=== PATIENT | male | born 1985 | race Caucasian/White ===

== ENCOUNTER 2024-01-31 13:04 | Emergency (ER) | payer OTHER ==
[2024-01-31 13:10] VITALS: TEMP 98.9
[2024-01-31] MEDS ORDERED: [UNRECOGNIZED DRUG - OTHER] SL STA (14:45)
--- NOTE | 2024-01-31 15:01 | ED ---
Nausea/Vomiting/Diarrhea HPI - General Chief complaint: Nausea/Vomiting/Diarrhea Stated complaint: Withdrawal Time Seen by Provider: 01/31/24 14:20 Source: patient, RN notes reviewed Mode of arrival: ambulatory Limitations: no limitations - History of Present Illness Initial comments: 38-year-old male presenting with opiate withdrawal. States he has been taking Suboxone however has been unable to obtain a refill due to insurance issues. States he ran out of the Suboxone 8 days ago. He took a Suboxone from a friend 4 days ago. Since then, he has been having stomach cramps, diarrhea, and body aches. Patient states he does not want to use. He has upcoming appointment with PCP in 3 days. - Related Data Previous Rx's Medication Instructions Recorded Buprenorphine-Nalox 8-2 mg Tab 1 tab SUBLINGUAL DAILY 3 Days #3 01/31/24 [Suboxone 8-2 mg Tab] tab Allergies Allergy/AdvReac Type Severity Reaction Status Date / Time antihemophilic factor, human Allergy Mild Anaphylaxis Verified 01/31/24 13:10 [From Humate-P] von Willebrand factor, human Allergy Mild Anaphylaxis Verified 01/31/24 13:10 [From Humate-P] Review of Systems ROS Statement: Those systems with pertinent positive or pertinent negative responses have been documented in the HPI. ROS Other: All systems not noted in ROS Statement are negative. Past Medical History Additional Past Medical History / Comment(s): opiate addiction, von willkaren History of Any Multi-Drug Resistant Organisms: None Reported Additional Past Surgical History / Comment(s): jaw surgery, right forearm repair, kidney surgery Past Psychological History: No Psychological Hx Reported Smoking Status: Current every day smoker Past Alcohol Use History: None Reported Past Drug Use History: Opiates General Exam Limitations: no limitations General appearance: alert, in no apparent distress Head exam: Present: atraumatic, normocephalic, normal inspection Eye exam: Present: normal appearance, PERRL, EOMI. Absent: scleral icterus, conjunctival injection, periorbital swelling ENT exam: Present: normal exam, mucous membranes moist Neck exam: Present: normal inspection. Absent: tenderness, meningismus, lymphadenopathy Respiratory exam: Present: normal lung sounds bilaterally. Absent: respiratory distress, wheezes, rales, rhonchi, stridor Cardiovascular Exam: Present: regular rate, normal rhythm, normal heart sounds. Absent: systolic murmur, diastolic murmur, rubs, gallop, clicks GI/Abdominal exam: Present: soft, normal bowel sounds. Absent: distended, tenderness, guarding, rebound, rigid Neurological exam: Present: alert, oriented X3 Psychiatric exam: Present: normal affect, normal mood Course Vital Signs 01/31/24 13:04 Temperature 98.9 F Pulse Rate 103 H Respiratory 16 Rate Blood Pressure 153/102 O2 Sat by Pulse 98 Oximetry Medical Decision Making - Medical Decision Making Was pt. sent in by a medical professional or institution (, PA, BUZZLE BUFFER, urgent care, hospital, or care home...) When possible be specific @ -No Did you speak to anyone other than the patient for history (EMS, parent, family, police, friend...)? What history was obtained from this source @ -No Did you review nursing and triage notes (agree or disagree)? Why? @ -I reviewed and agree with nursing and triage notes Were old charts reviewed (outside hosp., previous admission, EMS record, old EKG, old radiological studies, urgent care reports/EKG's, care home records)? Report findings @ -No old charts were reviewed Differential Diagnosis (chest pain, altered mental status, abdominal pain women, abdominal pain men, vaginal bleeding, weakness, fever, dyspnea, syncope, headache, dizziness, GI bleed, back pain, seizure, CVA, palpatations, mental health, musculoskeletal)? @ -Differential opiate withdrawal, appendicitis, cholecystitis, diverticulosis, ischemic bowel, pancreatitis, hepatitis, UTI, gastroenteritis, AAA, incarcerated hernia, bowel obstruction, constipation, inflammatory bowel, hepatitis, peptic ulcer disease, splenic infarction, perforated viscus, testicular torsion, this is not meant to be an all-inclusive list EKG interpreted by me (3pts min.). @ -None X-rays interpreted by me (1pt min.). @ -None done CT interpreted by me (1pt min.). @ -None done U/S interpreted by me (1pt. min.). @ -None done What testing was considered but not performed or refused? (CT, X-rays, U/S, labs)? Why? @ -Imaging not indicated as no red flag symptoms What meds were considered but not given or refused? Why? @ -None Did you discuss the management of the patient with other professionals (professionals i.e. , PA, BUZZLE BUFFER, lab, RT, psych nurse, high school social studies teacher, meal cooker, teacher, police patrol officer, business case analyst)? Give summary @ -No Was smoking cessation discussed for >3mins.? @ -No Was critical care preformed (if so, how long)? @ -No Were there social determinants of health that impacted care today? How? (Homelessness, low income, unemployed, alcoholism, drug addiction, transportation, low edu. Level, literacy, decrease access to med. care, skilled nursing, rehab)? @ -No Was there de-escalation of care discussed even if they declined (Discuss DNR or withdrawal of care, Hospice)? DNR status @ -No What co-morbidities impacted this encounter? (DM, HTN, Smoking, COPD, CAD, Cancer, CVA, ARF, Chemo, Hep., AIDS, mental health diagnosis, sleep apnea, morbid obesity)? @ -Opiate use disorder Was patient admitted / discharged? Hospital course, mention meds given and route, prescriptions, significant lab abnormalities, going to OR and other pertinent info. @ -Patient was discharged. Patient was seen and evaluated for opiate withdrawal. Patient was previously taking Suboxone however could not refill his medication due to insurance issues. Patient is experiencing diarrhea and abdominal cramping. Patient is mildly tachycardic. No acute distress, no abdominal tenderness. Patient was given IV fluids, Bentyl, Tylenol, and dose of Suboxone. Dose confirmed with patient. Lab work including CBC and CMP unremarkable. Upon reevaluation, patient states symptoms have improved and feels stable for discharge. Patient has upcoming appointment with primary care in 3 days. Return symptoms discussed. Given Suboxone for 3 days, however discussed importance of following up regularly with primary care physician. Patient is very grateful and agrees. Patient discharged in stable condition. Undiagnosed new problem with uncertain prognosis? @ -No Drug Therapy requiring intensive monitoring for toxicity (Heparin, Nitro, Insulin, Cardizem)? @ -No Were any procedures done? @ -No Diagnosis/symptom? @ -Opiate withdrawal Acute, or Chronic, or Acute on Chronic? @ -Acute Uncomplicated (without systemic symptoms) or Complicated (systemic symptoms)? @ -Uncomplicated Side effects of treatment? @ -No Exacerbation, Progression, or Severe Exacerbation? @ -No Poses a threat to life or bodily function? How? (Chest pain, [place], [place], pneumonia, PE, COPD, DKA, ARF, appy, cholecystitis, CVA, Diverticulitis, Homicidal, Suicidal, threat to staff... and all critical care pts) @ -Not at this time - Lab Data Result diagrams: 01/31/24 15:09 01/31/24 15:09 Lab Results 01/31/24 01/31/24 01/31/24 Range/Units 15:09 15:09 15:09 WBC 10.5 (3.8-10.6) k/uL RBC 4.70 (4.30-5.90) m/uL Hgb 15.0 (13.0-17.5) gm/dL Hct 45.1 (39.0-53.0) % MCV 95.9 (80.0-100.0) fL MCH 31.8 (25.0-35.0) pg MCHC 33.2 (31.0-37.0) g/dL RDW 13.8 (11.5-15.5) % Plt Count 270 (150-450) k/uL MPV 7.4 Neutrophils % 74 % Lymphocytes % 20 % Monocytes % 5 % Eosinophils % 0 % Basophils % 0 % Neutrophils # 7.7 (1.3-7.7) k/uL Lymphocytes # 2.1 (1.0-4.8) k/uL Monocytes # 0.5 (0-1.0) k/uL Eosinophils # 0.0 (0-0.7) k/uL Basophils # 0.0 (0-0.2) k/uL Sodium 141 (137-145) mmol/L Potassium 4.4 (3.5-5.1) mmol/L Chloride 108 H (98-107) mmol/L Carbon Dioxide 24 (22-30) mmol/L Anion Gap 9 mmol/L BUN 17 (9-20) mg/dL Creatinine 0.77 (0.66-1.25) mg/dL Est GFR (CKD-EPI)AfAm >90 (>60 ml/min/1.73 sqM) Est GFR (CKD-EPI)NonAf >90 (>60 ml/min/1.73 sqM) Glucose 111 H (74-99) mg/dL Calcium 9.1 (8.4-10.2) mg/dL Total Bilirubin 0.9 (0.2-1.3) mg/dL AST 86 H (17-59) U/L ALT 108 H (4-49) U/L Alkaline Phosphatase 58 (38-126) U/L Total Protein 7.1 (6.3-8.2) g/dL Albumin 4.5 (3.5-5.0) g/dL Urine Opiates Screen Not Detected (NotDetected) Ur Oxycodone Screen Not Detected (NotDetected) Urine Methadone Screen Not Detected (NotDetected) Ur Barbiturates Screen Not Detected (NotDetected) U Tricyclic Antidepress Not Detected (NotDetected) Ur Phencyclidine Scrn Not Detected (NotDetected) Ur Amphetamines Screen Not Detected (NotDetected) U Methamphetamines Scrn Not Detected (NotDetected) U Benzodiazepines Scrn Not Detected (NotDetected) Urine Cocaine Screen Not Detected (NotDetected) U Marijuana (THC) Screen Not Detected (NotDetected) Disposition Clinical Impression: Opiate withdrawal Disposition: HOME SELF-CARE Condition: Stable Instructions (If sedation given, give patient instructions): Opioid Withdrawal (ED) Additional Instructions: Follow-up for appointment on Thursday. Please return to the Emergency Department if symptoms worsen or any other concerns. Prescriptions: Buprenorphine-Nalox 8-2 mg Tab [Suboxone 8-2 mg Tab] 1 tab SUBLINGUAL DAILY 3 Days #3 tab Is patient prescribed a controlled substance at d/c from ED?: Yes When asked, does pt state using other controlled substances?: No If prescribed controlled substance>3 days was MAPS reviewed?: Prescribed <3 Days If opioid is for acute pain is fill amount 7 days or less?: Yes If Rx opioid, was Start Talking consent form obtained?: No Referrals: Nonstaff,Physician [Primary Care Provider] - 1-2 days Time of Disposition: 17:42
[2024-01-31] MEDS: SODIUM CHLORIDE 0.9% 1,000 ML IV STA (15:18)
[2024-01-31] MEDS: ACETAMINOPHEN TAB 325 MG TAB PO STA (15:18)
[2024-01-31] MEDS: DICYCLOMINE 20 MG TAB PO STA (15:18)
[2024-01-31 15:29] LABS: ALT 108 U/L (4-49); AST 86 U/L (17-59); African American GFR (CKD) >90 (>60 ml/min/1.73 sqM); Albumin 4.5 g/dL (3.5-5.0); Alkaline Phosphatase 58 U/L (38-126); Anion Gap 9 mmol/L; Blood Urea Nitrogen 17 mg/dL (9-20); Calcium 9.1 mg/dL (8.4-10.2); Carbon Dioxide 24 mmol/L (22-30); Chloride 108 mmol/L (98-107); Glucose 111 mg/dL (74-99); Non-African American GFR(CKD) >90 (>60 ml/min/1.73 sqM); Potassium 4.4 mmol/L (3.5-5.1); Sodium 141 mmol/L (137-145); Total Bilirubin 0.9 mg/dL (0.2-1.3); Total Protein 7.1 g/dL (6.3-8.2)
[2024-01-31] MEDS: BUPRENORPHINE-NALOX 8-2 MG TAB 1 EACH TAB.SUBL SL STA (15:31)
[2024-01-31 15:37] LABS: Basophils % (A) 0 %; Eosinophils % (A) 0 %; HCT 45.1 % (39.0-53.0); Lymphocytes # (A) 2.1 k/uL (1.0-4.8); Lymphocytes % (A) 20 %; MCH 31.8 pg (25.0-35.0); MCHC 33.2 g/dL (31.0-37.0); MCV 95.9 fL (80.0-100.0); Mean Platelet Volume 7.4; Monocytes # (A) 0.5 k/uL (0-1.0); Monocytes % (A) 5 %; Neutrophils # (A) 7.7 k/uL (1.3-7.7); Neutrophils % (A) 74 %; Platelet Count 270 k/uL (150-450); RDW 13.8 % (11.5-15.5); WBC 10.5 k/uL (3.8-10.6)
[2024-01-31 15:38] LABS: Amphetamine Screen,Urine Not Detected (NotDetected); Barbiturate Screen,Urine Not Detected (NotDetected); Benzodiazepines Screen,Urine Not Detected (NotDetected); Cocaine Screen,Urine Not Detected (NotDetected); Methadone Screen, Urine Not Detected (NotDetected); Opiate Screen,Urine Not Detected (NotDetected); Oxycodone Screen, Urine Not Detected (NotDetected); Phencyclidine Screen,Urine Not Detected (NotDetected); Tricyclic Antidepressant,Urine Not Detected (NotDetected); Urn Cannabinoid Scrn Not Detected (NotDetected)
[2024-01-31 18:16] VITALS: BP 138/79; PULSE 86; RESP 18
== END 2024-01-31 18:16 | disposition home or self-care (01) ==
LOC: EC 13:04
DX: F11.23 Opioid dependence with withdrawal (principal); F17.200 Nicotine dependence, unspecified, uncomplicated; Z88.8 Allergy status to other drugs, medicaments and biological substances
CPT/HCPCS: 36415; 80053; 80306; 85025; 96360; 99284

== ENCOUNTER 2024-04-08 16:18 | Emergency (ER) | payer OTHER ==
--- NOTE | 2024-04-08 17:01 | ED ---
ENT HPI - General Chief complaint: Dental/Oral Stated complaint: screw removal, liver issue Time Seen by Provider: 04/08/24 16:59 Source: patient, RN notes reviewed Mode of arrival: ambulatory Limitations: no limitations - History of Present Illness Initial comments: 38-year-old female with history of hepatitis C presenting to the ER for ultrasound of liver. He states he follows closely with Dr. Lyon and recently missed appointments for liver ultrasound which Dr. Lyon ordered. He is not currently having any symptoms. He also states he had a screw placed in his jaw 10 years ago from a jaw fracture and believes it is infected. States there is white drainage from the site. Denies fever, chills, vomiting. - Related Data Previous Rx's Medication Instructions Recorded Buprenorphine-Nalox 8-2 mg Tab 1 tab SUBLINGUAL DAILY 3 Days #3 01/31/24 [Suboxone 8-2 mg Tab] tab Amoxic-Pot Clav 875-125Mg 1 tab PO Q12HR #20 tab 04/08/24 [Augmentin 875-125] Allergies Allergy/AdvReac Type Severity Reaction Status Date / Time antihemophilic factor, human Allergy Mild Anaphylaxis Verified 01/31/24 13:10 [From Humate-P] von Willebrand factor, human Allergy Mild Anaphylaxis Verified 01/31/24 13:10 [From Humate-P] Review of Systems ROS Statement: Those systems with pertinent positive or pertinent negative responses have been documented in the HPI. ROS Other: All systems not noted in ROS Statement are negative. Past Medical History Additional Past Medical History / Comment(s): opiate addiction, jose crenshaw History of Any Multi-Drug Resistant Organisms: None Reported Additional Past Surgical History / Comment(s): jaw surgery, right forearm repair, kidney surgery Past Psychological History: No Psychological Hx Reported Smoking Status: Current every day smoker Past Alcohol Use History: None Reported Past Drug Use History: Opiates General Exam Limitations: no limitations General appearance: alert, in no apparent distress Head exam: Present: atraumatic, normocephalic, normal inspection Eye exam: Present: normal appearance, PERRL, EOMI. Absent: scleral icterus, co njunctival injection, periorbital swelling ENT exam: Present: mucous membranes moist, other (screw intact right lower gingiva, mild erythema, no fluctuant masses or drainage noted) Neck exam: Present: normal inspection. Absent: tenderness, meningismus, lymphadenopathy Respiratory exam: Present: normal lung sounds bilaterally. Absent: respiratory distress, wheezes, rales, rhonchi, stridor Cardiovascular Exam: Present: regular rate, normal rhythm, normal heart sounds. Absent: systolic murmur, diastolic murmur, rubs, gallop, clicks GI/Abdominal exam: Present: soft, normal bowel sounds. Absent: distended, tenderness, guarding, rebound, rigid Psychiatric exam: Present: normal affect, normal mood Skin exam: Present: warm, dry, intact, normal color. Absent: rash Course Vital Signs 04/08/24 16:29 Temperature 98.3 F Pulse Rate 75 Respiratory 18 Rate Blood Pressure 145/85 O2 Sat by Pulse 96 Oximetry Medical Decision Making - Medical Decision Making Was pt. sent in by a medical professional or institution (CARL Patel, CLASSIFIED ADVERTISING MANAGER, urgent care, hospital, or group home...) When possible be specific @ -No Did you speak to anyone other than the patient for history (EMS, parent, family, police, friend...)? What history was obtained from this source @ -No Did you review nursing and triage notes (agree or disagree)? Why? @ -I reviewed and agree with nursing and triage notes Were old charts reviewed (outside hosp., previous admission, EMS record, old EKG, old radiological studies, urgent care reports/EKG's, group home records)? Report findings @ -No old charts were reviewed Differential Diagnosis (chest pain, altered mental status, abdominal pain women, abdominal pain men, vaginal bleeding, weakness, fever, dyspnea, syncope, headache, dizziness, GI bleed, back pain, seizure, CVA, palpatations, mental health, musculoskeletal)? @ -Dental infection, dental abscess, gingivitis, foreign body, hepatitis EKG interpreted by me (3pts min.). @ -None X-rays interpreted by me (1pt min.). @ -None done CT interpreted by me (1pt min.). @ -None done U/S interpreted by me (1pt. min.). @ -Ultrasound liver reveals no acute process What testing was considered but not performed or refused? (CT, X-rays, U/S, labs)? Why? @ -None What meds were considered but not given or refused? Why? @ -None Did you discuss the management of the patient with other professionals (professionals i.e. , PA, CLASSIFIED ADVERTISING MANAGER, lab, RT, psych nurse, manager social responsibility, adolescent psychiatrist, teacher, adult probation officer, pillowcase sewer)? Give summary @ -No Was smoking cessation discussed for >3mins.? @ -No Was critical care preformed (if so, how long)? @ -No Were there social determinants of health that impacted care today? How? (Homelessness, low income, unemployed, alcoholism, drug addiction, transportation, low edu. Level, literacy, decrease access to med. care, residential, rehab)? @ -No Was there de-escalation of care discussed even if they declined (Discuss DNR or withdrawal of care, Hospice)? DNR status @ -No What co-morbidities impacted this encounter? (DM, HTN, Smoking, COPD, CAD, Cancer, CVA, ARF, Chemo, Hep., AIDS, mental health diagnosis, sleep apnea, morbid obesity)? @ -None Was patient admitted / discharged? Hospital course, mention meds given and route, prescriptions, significant lab abnormalities, going to OR and other pertinent info. @ -Discharged. This is a 38-year-old male presenting for ultrasound of liver and dental pain. States he has history of hepatitis C and missed his latest liver ultrasound. Denies any abdominal pain, nausea, vomiting. He also reports there is a "loose screw" from a dental surgery 10 years ago that he believes is infected. Vital signs are within acceptable limits. On examination, abdomen is soft and nontender. There is a visible screw present on right lower gingiva with no fluctuant mass or sign of abscess. Ultrasound liver revealed no acute process. Discussed results with patient. Will treat with Augmentin for dental infection, however instructed to follow-up with oral surgeon for screw removal. Supportive care discussed. Return precautions discussed. Patient is agreeable to plan. Case was discussed with my ED attending Dr. Watts. Patient was discharged in stable condition. Undiagnosed new problem with uncertain prognosis? @ -No Drug Therapy requiring intensive monitoring for toxicity (Heparin, Nitro, Insulin, Cardizem)? @ -No Were any procedures done? @ -No Diagnosis/symptom? @ -Dental infection, hepatitis C Acute, or Chronic, or Acute on Chronic? @ -Acute Uncomplicated (without systemic symptoms) or Complicated (systemic symptoms)? @ -Uncomplicated Side effects of treatment? @ -No Exacerbation, Progression, or Severe Exacerbation? @ -No Poses a threat to life or bodily function? How? (Chest pain, [place], [place], pneumonia, PE, COPD, DKA, ARF, appy, cholecystitis, CVA, Diverticulitis, Homicidal, Suicidal, threat to staff... and all critical care pts) @ -No Disposition Clinical Impression: Dental infection, Hepatitis C Disposition: HOME SELF-CARE Condition: Stable Instructions (If sedation given, give patient instructions): Dental Abscess (ED) Additional Instructions: Follow-up with Dr. Lyon as discussed. Follow-up with oral surgeon on Thursday. Take Augmentin twice daily for 10 days for dental infection. Please return to the Emergency Department if symptoms worsen or any other concerns. Prescriptions: Amoxic-Pot Clav 875-125Mg [Augmentin 875-125] 1 tab PO Q12HR #20 tab Is patient prescribed a controlled substance at d/c from ED?: No Referrals: Isaac Vallejo MD [Primary Care Provider] - 1-2 days Ben Arvizu DDS [STAFF PHYSICIAN] - 1-2 days Time of Disposition: 18:51
[2024-04-08] MEDS: KETOROLAC 15 MG/ML 1 ML VIAL IM STA (18:01)
--- NOTE | 2024-04-08 18:27 | US ---
EXAMINATION TYPE: US liver DATE OF EXAM: 04/08/2024 COMPARISON: NONE CLINICAL INDICATION: Male, 38 years old with history of hx hepatitis C, RUQ pain; Pt states he's been dealing with Hep C "for a while", states generalized ABD pain TECHNIQUE: Grayscale and color Doppler imaging of the right upper quadrant was performed. FINDINGS: EXAM MEASUREMENTS: Liver Length: 17.2 cm Gallbladder Wall: 0.2 cm CBD: 0.4 cm Right Kidney: 11.7 x 4.4 x 5.9 cm BLOOMING MILL SUPERVISOR NOTES: Pancreas: Obscured by bowel gas Liver: Upper limits of normal for size Gallbladder: wnl Evidence for sonographic Zhou's sign: No CBD: wnl Right Kidney: No evidence of hydro IMPRESSION: No evidence for acute abdominal process. [facility], Workstation: [id number], 04/08/2024 6:25 PM
[2024-04-08 19:21] VITALS: BP 132/88; PULSE 66; RESP 17; TEMP 98.7
== END 2024-04-08 19:21 | disposition home or self-care (01) ==
LOC: EC 16:18
DX: K04.7 Periapical abscess without sinus (principal); B19.20 Unspecified viral hepatitis C without hepatic coma; F17.200 Nicotine dependence, unspecified, uncomplicated
CPT/HCPCS: 76705; 99284; 96372; J1885; 96374

== ENCOUNTER 2024-04-11 08:29 | Emergency (ER) | payer OTHER ==
[2024-04-11 08:46] VITALS: RESP 18
[2024-04-11] MEDS: KETOROLAC 15 MG/ML 1 ML VIAL IM STA (09:20)
--- NOTE | 2024-04-11 10:17 | XR ---
EXAMINATION TYPE: XR elbow complete RT DATE OF EXAM: 04/11/2024 9:28 AM COMPARISON: None at this location. CLINICAL INDICATION: Male, 38 years old with history of Pain and swelling, TECHNIQUE: XR elbow complete RT view(s) obtained. FINDINGS: No acute fractures or dislocations evident. Plate and screws are present through the proximal ulna. T here is some prominent space between the olecranon in the posterior plate and screws measuring 0.7 cm . Soft tissue swelling is over the olecranon plate. No joint effusion is evident. Note is made of met allic foreign bodies in the antecubital fossa, can be compatible with fracture needles. IMPRESSION: 1. No acute osseous abnormality right elbow. 2. Soft tissue swelling over the olecranon plate and screws. 3. Metallic foreign bodies within the antecubital fossa. [facility], , 04/11/2024 10:15 AM
--- NOTE | 2024-04-11 11:09 | ED ---
Upper Extremity HPI - General Chief Complaint: Extremity Injury, Upper Stated Complaint: elbow pain Time Seen by Provider: 04/11/24 08:48 Source: patient, RN notes reviewed Mode of arrival: ambulatory Limitations: no limitations - History of Present Illness Initial Comments: This is a 38-year-old male who presents to the emergency department for right el bow pain and swelling. Unsure if he may have hit it on something last week, but states that he just noticed the swelling within the last couple of days. This is mildly painful. Not taking anything for pain control. Denies any fevers or chills. He has not noticed any redness over this area. MD Complaint: Injury to:: right, elbow - Related Data Previous Rx's Medication Instructions Recorded Buprenorphine-Nalox 8-2 mg Tab 1 tab SUBLINGUAL DAILY 3 Days #3 01/31/24 [Suboxone 8-2 mg Tab] tab Amoxic-Pot Clav 875-125Mg 1 tab PO Q12HR #20 tab 04/08/24 [Augmentin 875-125] Allergies Allergy/AdvReac Type Severity Reaction Status Date / Time antihemophilic factor, human Allergy Mild Anaphylaxis Verified 04/11/24 08:46 [From Humate-P] von Willebrand factor, human Allergy Mild Anaphylaxis Verified 04/11/24 08:46 [From Humate-P] Review of Systems ROS Statement: Those systems with pertinent positive or pertinent negative responses have been documented in the HPI. ROS Other: All systems not noted in ROS Statement are negative. Past Medical History Additional Past Medical History / Comment(s): [facility] History of Any Multi-Drug Resistant Organisms: None Reported Additional Past Surgical History / Comment(s): jaw surgery, right forearm repair, kidney surgery Past Psychological History: Depression Smoking Status: Current every day smoker Past Alcohol Use History: None Reported Past Drug Use History: Opiates General Exam Limitations: no limitations General appearance: alert, in no apparent distress Head exam: Present: atraumatic, normocephalic, normal inspection Respiratory exam: Present: normal lung sounds bilaterally. Absent: respiratory distress, wheezes, rales, rhonchi, stridor Cardiovascular Exam: Present: regular rate, normal rhythm, normal heart sounds. Absent: systolic murmur, diastolic murmur, rubs, gallop, clicks Extremities exam: Present: other (Swelling over the right olecranon bursa. No erythema or warmth.) Neurological exam: Present: alert, oriented X3, CN II-XII intact Psychiatric exam: Present: normal affect, normal mood Course Vital Signs 04/11/24 04/11/24 04/11/24 08:41 09:15 11:16 Temperature 97.6 F 98.1 F Pulse Rate 76 54 L 64 Respiratory 18 18 18 Rate Blood Pressure 124/74 120/69 120/66 O2 Sat by Pulse 98 100 100 Oximetry Medical Decision Making - Medical Decision Making This is a 38-year-old male who presents to the emergency department for right elbow pain and swelling. Was pt. sent in by a medical professional or institution? @ -No Did you speak to anyone other than the patient for history? @ -No Did you review nursing and triage notes? @ -Yes, and I agree, it is accurate with regards to the patient's symptoms. Were old charts reviewed? @ -No Differential Diagnosis? @ -Differential Musculoskeletal: Muscular strain, contusion, ligament sprain, fracture, arthritis, septic arthritis, bursitis, cellulitis, muscle spasm, nerve compression, DVT, arterial occlusion, herpes zoster, electrolyte abnormality, tumor.... This is not meant to be in all inclusive list EKG interpreted by me (3pts min.)? @ -Not obtained X-rays interpreted by me (1pt min.)? @ -X-ray of the right elbow obtained. My interpretation identifies no acute fractures. CT interpreted by me (1pt min.)? @ -Not obtained U/S interpreted by me (1pt. min.)? @ -Not obtained What testing was considered but not performed? (CT, X-rays, U/S, labs)? Why? @ -None What meds were considered but not given? Why? @ -None Did you discuss the management of the patient with other professionals? @ -No Did you reconcile home meds? @ -No Was smoking cessation discussed for >3mins.? @ -No Was critical care preformed (if so, how long)? @ -No Were there social determinants of health that impacted care today? How? (Homelessness, low income, unemployed, alcoholism, drug addiction, transportation, low edu. Level, literacy, decrease access to med. care, penitentiary, rehab)? @ -No Was there de-escalation of care discussed even if they declined? (Discuss DNR or withdrawal of care, Hospice)? @ -No What co-morbidities impacted this encounter? (DM, HTN, Smoking, COPD, CAD, Cancer, CVA, Hep., AIDS, mental health diagnosis, sleep apnea, morbid obesity)? @ -History of opiate addiction Was patient admitted / discharged? @ -Discharged. X-ray of the right elbow obtained demonstrating soft tissue swelling. This is consistent with his presentation, which is that of an olecranon bursitis. There was no erythema or warmth to suggest an infectious bursitis. He does have foreign bodies in the antecubital fossa consistent with fractured needles. Patient has a past medical history of drug addiction and these have been present for quite some time. He has no acute skin changes or discomfort in this area. Pain managed in the emergency department. Advised elevation, compression with something like an Freddy bandage and anti- inflammatories. He is also advised to avoid resting his elbow on hard surfaces for the meantime, as this will likely make it worse. Information for orthopedic follow-up provided in the event he needs to have this drained. Advised he continue with ibuprofen and Tylenol as needed for pain relief. Patient discharged home in stable condition. Case discussed with ED attending Dr. Goldsmith. Return precautions reviewed in depth, the patient is instructed to return to the emergency department with any new, worsening, or concerning symptoms. Patient verbalized understanding. Undiagnosed new problem with uncertain prognosis? @ -None Drug Therapy requiring intensive monitoring for toxicity (Heparin, Nitro, Insulin, Cardizem)? @ -None Were any procedures done? @ -None Diagnosis/symptom? @ -Right olecranon bursitis Acute, or Chronic, or Acute on Chronic? @ -Acute Uncomplicated (without systemic symptoms) or Complicated (systemic symptoms)? @ -Uncomplicated Side effects of treatment? @ -None Exacerbation, Progression, or Severe Exacerbation] @ -Not applicable Poses a threat to life or bodily function? @ -No - Radiology Data Radiology results: report reviewed, image reviewed Disposition Clinical Impression: Olecranon bursitis of right elbow Disposition: HOME SELF-CARE Instructions (If sedation given, give patient instructions): Elbow Bursitis (ED) Additional Instructions: Return to the emergency department with any new, worsening, or concerning symptoms. Use something like an Freddy bandage for compression of the elbow. Apply ice and keep the arm elevated. Alternate with ibuprofen and Tylenol for pain relief. You can contact orthopedics as listed below for a follow-up appointment. Avoid putting further pressure on the elbow or setting it down on hard surfaces, as this will make it worse. Follow up with your primary care provider in 1-2 days. Is patient prescribed a controlled substance at d/c from ED?: No Referrals: Isaac Vallejo MD [Primary Care Provider] - 1-2 days Laverne Cobb DO [Doctor of Osteopathic Medicine] - 1-2 days Time of Disposition: 11:09
[2024-04-11 11:18] VITALS: BP 120/66; PULSE 64; TEMP 98.1
== END 2024-04-11 11:16 | disposition home or self-care (01) ==
LOC: EC 08:29
DX: M70.21 Olecranon bursitis, right elbow (principal); F17.200 Nicotine dependence, unspecified, uncomplicated; Z88.8 Allergy status to other drugs, medicaments and biological substances; Z86.59 Personal history of other mental and behavioral disorders
CPT/HCPCS: 73080; 99283; 96372; J1885

== ENCOUNTER 2024-06-06 21:54 | Emergency (ER) | payer OTHER ==
[2024-06-06 21:58] VITALS: TEMP 98.6
[2024-06-06 22:46] LABS: Amorphous Sediment,Urine Rare /hpf; Appearance,Urine Turbid (Clear); Bilirubin,Urine Negative (Negative); Blood,Urine Negative (Negative); Color,Urine Light Yellow; Glucose,Urine (UA) Negative (Negative); Ketones,Urine Negative (Negative); Leukocyte Esterase,Urine Negative (Negative); Mucus,Urine Rare /hpf; Nitrite,Urine Negative (Negative); Protein,Urine Negative (Negative); RBC,Urine 3 /hpf (0-5); Specific Gravity,Urine 1.018 (1.001-1.035); Urobilinogen,Urine <2.0 mg/dL (<2.0)
--- NOTE | 2024-06-06 23:18 | ED ---
Abdominal Pain HPI - General Source: patient Mode of arrival: ambulatory Limitations: no limitations <Caleb George - Last Filed: 06/06/24 23:18> <Elton Goldsmith - Last Filed: 06/07/24 01:34> - General Chief Complaint: Abdominal Pain Stated Complaint: Abd/Back Pain Time Seen by Provider: 06/06/24 23:02 - History of Present Illness Initial Comments: 39-year-old male presenting with chief complaint of right flank pain that started today. History of kidney stones and states that this feels similar. He states that there is some discomfort with urination as well. (Caleb George) 39 old male presenting with right flank pain which began yesterday. Patient has history of previous kidney stones. No fever. No vomiting. No anterior abdominal pain. Constant in nature (Elton Goldsmith) - Related Data Previous Rx's Medication Instructions Recorded Buprenorphine-Nalox 8-2 mg Tab 1 tab SUBLINGUAL DAILY 3 Days #3 01/31/24 [Suboxone 8-2 mg Tab] tab Amoxic-Pot Clav 875-125Mg 1 tab PO Q12HR #20 tab 04/08/24 [Augmentin 875-125] Allergies Allergy/AdvReac Type Severity Reaction Status Date / Time antihemophilic factor, human Allergy Mild Anaphylaxis Verified 06/06/24 21:58 [From Humate-P] von Willebrand factor, human Allergy Mild Anaphylaxis Verified 06/06/24 21:58 [From Humate-P] Review of Systems ROS Other: All systems not noted in ROS Statement are negative. <Caleb George - Last Filed: 06/06/24 23:18> ROS Other: All systems not noted in ROS Statement are negative. <Elton Goldsmith - Last Filed: 06/07/24 01:34> ROS Statement: Those systems with pertinent positive or pertinent negative responses have been documented in the HPI. Past Medical History Additional Past Medical History / Comment(s): opiate addiction, [facility] History of Any Multi-Drug Resistant Organisms: None Reported Additional Past Surgical History / Comment(s): jaw surgery, right forearm repair, kidney surgery Past Psychological History: Depression Smoking Status: Current every day smoker Past Alcohol Use History: None Reported Past Drug Use History: Opiates <Caleb George - Last Filed: 06/06/24 23:18> General Exam Limitations: no limitations <Caleb George - Last Filed: 06/06/24 23:18> General appearance: alert, in no apparent distress Head exam: Present: atraumatic, normocephalic Eye exam: Present: normal appearance, PERRL ENT exam: Present: normal exam Respiratory exam: Present: normal lung sounds bilaterally. Absent: respiratory distress, wheezes Cardiovascular Exam: Present: regular rate, normal rhythm GI/Abdominal exam: Present: soft. Absent: distended, tenderness Extremities exam: Present: normal inspection, normal capillary refill Back exam: Present: CVA tenderness (R) Neurological exam: Present: alert, oriented X3 Psychiatric exam: Present: normal affect, normal mood Skin exam: Present: warm, dry, intact <Elton Goldsmith - Last Filed: 06/07/24 01:34> - General Exam Comments Initial Comments: Visual Physical Exam Vital signs reviewed General: Well-appearing, nontoxic, no acute distress. Head: Normocephalic, atraumatic Eyes: PERRLA, EOMI ENT: Airway patent Chest: Nonlabored breathing Skin: No visual rash, normal skin tone Neuro: Alert and oriented 3 Musculoskeletal: No gross abnormalities (Caleb George) Course Vital Signs 06/06/24 06/07/24 21:57 00:46 Temperature 98.6 F Pulse Rate 71 57 L Respiratory 18 17 Rate Blood Pressure 142/89 118/73 O2 Sat by Pulse 97 97 Oximetry Medical Decision Making <Caleb George - Last Filed: 06/06/24 23:18> - Lab Data Result diagrams: 06/06/24 23:34 06/06/24 23:34 <Elton Goldsmith - Last Filed: 06/07/24 01:34> - Medical Decision Making I performed the quick note portion of this visit, electronically signed Caleb George PA-C (Caleb George) Was pt. sent in by a medical professional or institution (CARL Patel, CAREER DEVELOPMENT DIRECTOR, urgent care, hospital, or fdc...) When possible be specific @ -No Did you speak to anyone other than the patient for history (EMS, parent, family, police, friend...)? What history was obtained from this source @ -No Did you review nursing and triage notes (agree or disagree)? Why? @ -I reviewed and agree with nursing and triage notes Were old charts reviewed (outside hosp., previous admission, EMS record, old EKG, old radiological studies, urgent care reports/EKG's, fdc records)? Report findings @ -No old charts were reviewed Differential Abdominal Pain Men: Appendicitis, cholecystitis, diverticulosis, ischemic bowel, pancreatitis, hepatitis, UTI, gastroenteritis, AAA, incarcerated hernia, bowel obstruction, constipation, inflammatory bowel, hepatitis, peptic ulcer disease, splenic infarction, perforated viscus, testicular torsion, this is not meant to be an all-inclusive list EKG interpreted by me (3pts min.). @ -As above X-rays interpreted by me (1pt min.). @ -None done CT interpreted by me (1pt min.). @CT abdomen pelvis without contrast showing kidney stones within the right kidney without any obstruction, no hydronephrosis. No other acute findings. U/S interpreted by me (1pt. min.). @ -None done What testing was considered but not performed or refused? (CT, X-rays, U/S, labs)? Why? @ -None What meds were considered but not given or refused? Why? @ -None Did you discuss the management of the patient with other professionals (professionals i.e. , PA, CAREER DEVELOPMENT DIRECTOR, lab, RT, psych nurse, high school social studies tutor, media senior recruiter, teacher, identification officer, case advocate)? Give summary @ -No Was smoking cessation discussed for >3mins.? @ -No Was critical care preformed (if so, how long)? @ -No Were there social determinants of health that impacted care today? How? (Homelessness, low income, unemployed, alcoholism, drug addiction, transportation, low edu. Level, literacy, decrease access to med. care, retirement, rehab)? @ -No Was there de-escalation of care discussed even if they declined (Discuss DNR or withdrawal of care, Hospice)? DNR status @ -No What co-morbidities impacted this encounter? (DM, HTN, Smoking, COPD, CAD, Cancer, CVA, ARF, Chemo, Hep., AIDS, mental health diagnosis, sleep apnea, morbid obesity)? @ -History of kidney stones Was patient admitted / discharged? Hospital course, mention meds given and route, prescriptions, significant lab abnormalities, going to OR and other pertinent info. @ -39-year-old male with history of kidney stones, right flank pain, CT showing stones within the kidney, no obstruction, no acute findings on CT, normal CBC, normal CMP urinalysis negative for significant findings. Patient reevaluated, resting comfortably. Stable for discharge with outpatient follow-up. Undiagnosed new problem with uncertain prognosis? @ -No Drug Therapy requiring intensive monitoring for toxicity (Heparin, Nitro, Insulin, Cardizem)? @ -No Were any procedures done? @ -No Diagnosis/symptom? @ -Flank pain Acute, or Chronic, or Acute on Chronic? @ -Acute Uncomplicated (without systemic symptoms) or Complicated (systemic symptoms)? @ -Default Side effects of treatment? @ -No Exacerbation, Progression, or Severe Exacerbation? @ -No Poses a threat to life or bodily function? How? (Chest pain, [place], NH, pneumonia, PE, COPD, DKA, ARF, appy, cholecystitis, CVA, Diverticulitis, Homicidal, Suicidal, threat to staff... and all critical care pts) @ -No (Elton Goldsmith) - Lab Data Lab Results 06/06/24 06/06/24 06/06/24 Range/Units 22:12 23:34 23:34 WBC 9.2 (3.8-10.6) k/uL RBC 4.44 (4.30-5.90) m/uL Hgb 13.9 (13.0-17.5) gm/dL Hct 41.3 (39.0-53.0) % MCV 93.0 (80.0-100.0) fL MCH 31.3 (25.0-35.0) pg MCHC 33.7 (31.0-37.0) g/dL RDW 12.7 (11.5-15.5) % Plt Count 202 (150-450) k/uL MPV 7.0 Neutrophils % 56 % Lymphocytes % 35 % Monocytes % 6 % Eosinophils % 1 % Basophils % 0 % Neutrophils # 5.1 (1.3-7.7) k/uL Lymphocytes # 3.2 (1.0-4.8) k/uL Monocytes # 0.5 (0-1.0) k/uL Eosinophils # 0.1 (0-0.7) k/uL Basophils # 0.0 (0-0.2) k/uL Sodium 138 (137-145) mmol/L Potassium 3.5 (3.5-5.1) mmol/L Chloride 99 (98-107) mmol/L Carbon Dioxide 29 (22-30) mmol/L Anion Gap 10 mmol/L BUN 19 (9-20) mg/dL Creatinine 0.90 (0.66-1.25) mg/dL Est GFR (CKD-EPI)AfAm >90 (>60 ml/min/1.73 sqM) Est GFR (CKD-EPI)NonAf >90 (>60 ml/min/1.73 sqM) Glucose 76 (74-99) mg/dL Calcium 9.3 (8.4-10.2) mg/dL Total Bilirubin 0.6 (0.2-1.3) mg/dL AST 38 (17-59) U/L ALT 20 (4-49) U/L Alkaline Phosphatase 58 (38-126) U/L Total Protein 7.7 (6.3-8.2) g/dL Albumin 4.8 (3.5-5.0) g/dL Urine Color Light Yellow Urine Appearance Turbid (Clear) Urine pH 7.0 (5.0-8.0) Ur Specific [place] 1.018 (1.001-1.035) Urine Protein Negative (Negative) Urine Glucose (UA) Negative (Negative) Urine Ketones Negative (Negative) Urine Blood Negative (Negative) Urine Nitrite Negative (Negative) Urine Bilirubin Negative (Negative) Urine Urobilinogen <2.0 (<2.0) mg/dL Ur Leukocyte Esterase Negative (Negative) Urine RBC 3 (0-5) /hpf Amorphous Sediment Rare H (None) /hpf Urine Mucus Rare H (None) /hpf Disposition <Caleb George - Last Filed: 06/06/24 23:18> Is patient prescribed a controlled substance at d/c from ED?: No Time of Disposition: 01:34 <Elton Goldsmith - Last Filed: 06/07/24 01:34> Clinical Impression: Abdominal pain Disposition: HOME SELF-CARE Condition: Fair Instructions (If sedation given, give patient instructions): Abdominal Pain (ED) Referrals: Isaac Vallejo MD [Primary Care Provider] - 1-2 days
[2024-06-07 00:03] LABS: Basophils % (A) 0 %; Eosinophils # (A) 0.1 k/uL (0-0.7); Eosinophils % (A) 1 %; HCT 41.3 % (39.0-53.0); HGB 13.9 gm/dL (13.0-17.5); Lymphocytes # (A) 3.2 k/uL (1.0-4.8); Lymphocytes % (A) 35 %; MCH 31.3 pg (25.0-35.0); MCHC 33.7 g/dL (31.0-37.0); Monocytes # (A) 0.5 k/uL (0-1.0); Monocytes % (A) 6 %; Neutrophils # (A) 5.1 k/uL (1.3-7.7); Neutrophils % (A) 56 %; Platelet Count 202 k/uL (150-450); RBC 4.44 m/uL (4.30-5.90); RDW 12.7 % (11.5-15.5); WBC 9.2 k/uL (3.8-10.6)
[2024-06-07 00:12] LABS: ALT 20 U/L (4-49); AST 38 U/L (17-59); African American GFR (CKD) >90 (>60 ml/min/1.73 sqM); Albumin 4.8 g/dL (3.5-5.0); Alkaline Phosphatase 58 U/L (38-126); Anion Gap 10 mmol/L; Blood Urea Nitrogen 19 mg/dL (9-20); Calcium 9.3 mg/dL (8.4-10.2); Carbon Dioxide 29 mmol/L (22-30); Chloride 99 mmol/L (98-107); Glucose 76 mg/dL (74-99); Non-African American GFR(CKD) >90 (>60 ml/min/1.73 sqM); Potassium 3.5 mmol/L (3.5-5.1); Sodium 138 mmol/L (137-145); Total Bilirubin 0.6 mg/dL (0.2-1.3); Total Protein 7.7 g/dL (6.3-8.2)
[2024-06-07] MEDS: KETOROLAC 15 MG/ML 1 ML VIAL IVP STA (00:49)
--- NOTE | 2024-06-07 01:25 | CT ---
EXAM: CT Abdomen and Pelvis Without Intravenous Contrast CLINICAL HISTORY: R flank pain TECHNIQUE: Axial computed tomography images of the abdomen and pelvis without intravenous contrast. CTDI is 10.5 mGy and DLP is 698.4 mGy-cm. This CT exam was performed using one or more of the following dose reduction techniques: automated exposure control, adjustment of the mA and/or kV according to patient size, and/or use of iterative reconstruction technique. Coronal and sagittal reformatted images were created and reviewed. 544 images. COMPARISON: No relevant prior studies available. FINDINGS: Lung bases: Unremarkable. No mass. No consolidation. ABDOMEN: Liver: Unremarkable. Gallbladder and bile ducts: Unremarkable. No calcified stones. No ductal dilation. Pancreas: Unremarkable. No ductal dilation. Spleen: Unremarkable. No splenomegaly. Adrenals: Unremarkable. No mass. Kidneys and ureters: Cluster of nonobstructing stones in the medial lower pole of right kidney measuring up to 6 mm. No obstructive uropathy. Stomach and bowel: Unremarkable. No obstruction. No mucosal thickening. PELVIS: Appendix: Normal. Bladder: Unremarkable. No stones. Reproductive: Unremarkable as visualized. ABDOMEN and PELVIS: Intraperitoneal space: Unremarkable. No free air. No significant fluid collection. Bones/joints: Advanced degenerative disc disease at L5-S1 causes severe bilateral neural from narrowing, worse on the left. Soft tissues: Small amount of stranding in the subcutaneous fat of the anterior abdominal wall bilaterally, may represent contusion versus injection sites. Vasculature: Unremarkable. No abdominal aortic aneurysm. Lymph nodes: Unremarkable. No enlarged lymph nodes. IMPRESSION: Cluster of nonobstructing stones in the medial lower pole of right kidney measuring up to 6 mm. No obstructive uropathy.
[2024-06-07 01:44] VITALS: BP 122/84; PULSE 62; RESP 18
== END 2024-06-07 01:44 | disposition home or self-care (01) ==
LOC: EC 21:54
DX: N20.0 Calculus of kidney (principal); F17.200 Nicotine dependence, unspecified, uncomplicated; Z88.8 Allergy status to other drugs, medicaments and biological substances
CPT/HCPCS: 36415; 74176; 80053; 81001; 85025; 96374; 99284